=== PATIENT | female | born 1975 | race Caucasian/White ===

== ENCOUNTER 2018-07-21 22:52 | Emergency (ER) | payer OTHER ==
[~2018-07-21] VITALS: Ht 160 cm; Wt 72.6 kg
[~2018-07-21 22:52] MED LIST: NKM; PROAIR HFA8.5 GM INH
[2018-07-21 23:00] VITALS: BP 108/63
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
[2018-07-21] MEDS ORDERED: ZITHROMAX250 MG ORAL (23:29)
[2018-07-21] MEDS ORDERED: Acetaminophen 500mg (ES) tab ORAL ONE (23:30)
[2018-07-21] MEDS ORDERED: Bacitracin Oint UD TOPIC ONE (23:30)
[2018-07-21 23:40] VITALS: BP 108/63
== END 2018-07-21 23:42 | disposition home or self-care (01) ==
LOC: EDBD 22:52 → EMR 23:07 → MERGE 23:07 → EMR 23:42
DX: S01.01XD Laceration without foreign body of scalp, subsequent encounter (principal); F10.129 Alcohol abuse with intoxication, unspecified; Z48.02 Encounter for removal of sutures
CPT/HCPCS: 99283